=== PATIENT | female | born 1960 | race Caucasian/White ===

== ENCOUNTER 2025-01-27 21:07 | Outpatient (REF) | payer SELFPAY ==
[2025-01-27 21:08] VITALS: BP 157/62; PULSE 73; RESP 18; TEMP 36.8; O2SAT 91
[2025-01-27 21:13] VITALS: BP 157/62; PULSE 73; RESP 18; TEMP 36.8; O2SAT 91
--- NOTE | 2025-01-27 21:22 | EKG12_ITS ---
Test Reason : DYSRHYTHMIA Blood Pressure : */* mmHG Vent. Rate : 73 BPM Atrial Rate : 73 BPM P-R Int : 146 ms QRS Dur : 90 ms QT Int : 426 ms P-R-T Axes : 62 58 66 degrees QTcB Int : 469 ms Normal sinus rhythm with sinus arrhythmia Normal ECG Confirmed by BROOKE BLAIR, JIMMY ([id number]), video editor ADELIA HICKEY ([id number]) on 01/28/2025 1:03:19 PM Referred By: Confirmed By: JIMMY COX MD
--- NOTE | 2025-01-27 21:23 | ED.VIS.DYS ---
HPI History of Present Illness Chief Complaint: Shortness of Breath Associated Symptoms Chest Pain: Positive for Tightness Narrative Narrative: 64-year-old female currently incarcerated at [facility] for the last few weeks presents with increasing shortness of breath with history of COPD. She relates history that she was seen at [facility] [place] a few weeks ago when she was at another facility. She was placed on prednisone then. She states she was having problems with her oxygen level at that time. She presents with increasing shortness of breath over the last few days. She usually uses an inhaler and used it earlier this afternoon and she gets breathing treatments every 6 hours. She presents with increasing shortness of breath. While she is a smoker, she states she has not had a cigarette for over a year. Denies any leg swelling. She feels chest tightness throughout her chest as well. She has developed a nonproductive cough. PFSH PFSH Home Medications ?Medication ?Instructions ?Recorded ?Last Taken ?Type prednisone 20 mg tablet 40 mg (2 x 20 mg) PO DAILY 10 days 01/27/25 Unknown Rx #20 tabs Allergy/AdvReac Type Severity Reaction Status Date / Time Penicillins (PCN) Allergy Mild Swelling Verified 01/27/25 21:08 ROS ROS ED ROS Narrative Review of systems positive for occasional cough, increasing shortness of breath over the last few days. No fevers or chills, positive chest tightness. No leg swelling. EXAM Physical Exam Narrative Exam Narrative: Afebrile. Vital signs noted. Nontoxic-appearing. Cardiovascular examination of is a regular rate and rhythm. Lungs are clear to auscultation bilaterally and she is moving a good amount of air. She may have diminished breath sounds at the bilateral bases. Abdomen is soft and nontender with positive bowel sounds. Neurological examination nonfocal, nonlateralizing. Const Vital Signs: 01/27/25 21:08 01/27/25 21:13 01/27/25 21:22 Temperature 98.3 F 98.3 F Temperature Source Oral Oral Pulse Rate 73 73 Respiratory Rate 18 18 Respiratory Pattern Blood Pressure 157/62 H 157/62 H Blood Pressure Mean 93 93 Pulse Ox 91 91 Oxygen Delivery Method Room Air Room Air Room Air 01/27/25 21:29 Temperature Temperature Source Pulse Rate 73 Respiratory Rate 20 H Respiratory Pattern Normal Blood Pressure Blood Pressure Mean Pulse Ox Oxygen Delivery Method MDM MDM MDM Narrative Medical decision making narrative: The differential diagnosis includes but not limited to COPD exacerbation versus pneumonia versus pneumothorax. I have low suspicion for CHF because she does not have a history of this. Additionally, history and physical does not necessarily support pneumonia as she has not had a fever. She also does not have a productive cough. Patient administered a DuoNeb aerosolized treatment as well as prednisone 60 mg orally. EKG and chest x-ray in 1 view will be obtained as well as baseline laboratories to look for anemia or an electrolyte imbalance as well. Serum CO2 level will be obtained and reviewed as well. I reviewed her laboratory work and she has normal white count of 5.3 with hemoglobin normal at 14.6, hematocrit 42.5, platelet count normal at 280. BMP is remarkable for glucose of 106, CO2 24.8. Chest x-ray interpreted by myself in 1 view shows atelectasis but no evidence of a consolidation. I reviewed the radiology report which confirms my independent interpretation. I do not think this is a pneumonia that requires antibiotics. Upon repeat examination, her oxygen saturation is 92% on room air. She is moving a good amount of air. There is no overt wheezing. I do feel that she can be discharged in custody of the [facility] to start a steroid burst for the next 10 days 40 mg as she was given 60 mg here. She will continue her albuterol aerosolized treatments every 6 hours, and use her rescue inhaler as well. Disposition is discharged in custody of [facility]. Return instructions were reviewed. Patient is in stable condition. History & Record Review Discussion w/independent historian: Patient Additional record(s) reviewed:: No prior records Lab Data Attestation: I reviewed the patient's lab results. Labs: Laboratory Results - last 24 hr 01/27/25 21:26 WBC 5.3 RBC 4.55 Hgb 14.6 Hct 42.5 MCV 93.4 MCH 32.1 H MCHC 34.4 RDW Std Deviation 45.0 H RDW Coeff of Bello 13.2 Plt Count 280 MPV 9.2 Immature Gran % (Auto) 0.900 Neut % (Auto) 44.4 L Lymph % (Auto) 38.4 [place] % (Auto) 10.5 H Eos % (Auto) 4.1 Baso % (Auto) 1.7 H Absolute Neuts (auto) 2.4 Absolute Lymphs (auto) 2.04 Nucleated RBC % 0 Sodium 144 Potassium 3.8 Chloride 108 Carbon Dioxide 24.8 Anion Gap 11 BUN 13 Creatinine 0.88 Est GFR (MDRD) Non-Af 73 BUN/Creatinine Ratio 14.8 Glucose 106 H Calcium 9.5 Radiography Chest X-Ray - ED: 1 View, Read by ED Physician, Read by Radiologist and - (Atelectasis) Diagnostic Testing: Clinical Impression(s) from Imaging Studies Chest X-Ray 01/27/25 21:55 IMPRESSION: Right lower lobe opacity may reflect atelectasis vs pneumonia. Reading Location: [facility] Discharge Plan Triage Chief Complaint: Shortness of Breath ED Provider: Andre Roe Dx/Rx/DC Orders Clinical Impression: COPD exacerbation, Dyspnea Instructions: ED COPD Flare, ED Dyspnea Prescriptions: New prednisone 20 mg tablet 40 mg PO DAILY 10 Days Qty: 20 0RF Primary Care Provider: JOHN CARO Referrals: NOT,DEFINED [Non-Staff] - Activity Restrictions/Additional Instructions: Continue to use your albuterol inhaler, and your breathing treatment every 6 hours. Start the steroid burst and take it daily for the next 10 days. Return with increased difficulty breathing, new or worsening symptoms. Print Language: Kinyarwanda Disposition Disposition: Home, Self Care
[2025-01-27 21:29] VITALS: PULSE 73; RESP 20
[2025-01-27 21:32] LABS: Hematocrit 42.5 % (37-47); Hemoglobin 14.6 g/dL (12.0-15.0); Immature Granulocytes Count 0.050 X10^3/uL (0.0-0.0); Mean Corp Hgb Conc 34.4 g/dL (32-36); Mean Corpuscular Volume 93.4 fL (81-99); Mean Platelet Vol. 9.2 fl (6.2-12.0); NRBC Flagged by Analyzer 0 % (0-5); Platelet Count 280 K/mm3 (150-450); RBC Distribution Width CV 13.2 % (11.6-14.6); RBC Distribution Width SD 45.0 fl (35.1-43.9); Red Blood Count 4.55 M/mm3 (4.2-5.4); White Blood Count 5.3 K/mm3 (4.4-11.0)
[2025-01-27 21:50] LABS: Anion Gap 11 (5-15); BUN 13 mg/dL (4-19); BUN/Creat Ratio 14.8 RATIO (10-20); Calcium,Total 9.5 mg/dL (7.6-11.0); Carbon Dioxide 24.8 mmol/L (21.0-32.0); Chloride 108 mmol/L (98-108); Glucose 106 mg/dL (70-99); Potassium 3.8 mmol/L (3.3-5.1)
--- NOTE | 2025-01-27 21:55 | RAD_ITS ---
PROCEDURE: CHEST 1 VIEW (PORTABLE) 01/27/2025 REASON FOR EXAM: SHORTNESS OF BREATH TECHNIQUE: Frontal view of the chest. COMPARISON: none FINDINGS: Right lower lobe opacity may reflect atelectasis vs pneumonia. No pleural effusion or pneumothorax. Cardiac silhouette is within normal limits. RAD/Chest 1 View (Portable) IMPRESSION: Right lower lobe opacity may reflect atelectasis vs pneumonia. Reading Location: [facility]
[2025-01-27 22:42] VITALS: BP 148/86; PULSE 71; RESP 16; TEMP 36.7; O2SAT 96
== END 2025-01-27 22:46 | disposition home or self-care (01) ==
LOC: ED 21:07
PROVIDERS: Visit Provider Emergency Medicine
DX: J44.1 Chronic obstructive pulmonary disease with (acute) exacerbation (principal); R06.00 Dyspnea, unspecified
CPT/HCPCS: 71045; 80048; 85025; 93005; 94640; A4216